=== PATIENT | male | born 1960 | race Caucasian/White ===

== ENCOUNTER 2016-12-04 20:06 | Emergency (ER) | payer SELFPAY ==
[2016-12-04] MEDS: FUROSEMIDE 40 MG TABLET PO ONE (20:59)
--- NOTE | 2016-12-04 21:20 | ED Physician Documentation ---
General Adult - HISTORIAN Historian: patient, spouse - HPI Stated Complaint: BLE swelling Chief Complaint: General Adult Additional Information: pt home fr mumc 5 d ago for alcoholic cirrhosis and gi bleed-hx 1 10/06 gAL vodka for years. pt states std drinking age 4-5 years(grandfather gave me drinks) mother age 48 alcoholic cirrhosis. pt states quid etoh when wewnt to hosp w gi bleed. since home marked edema legs and abd ascites. std while in hosp. nop gene dt's. pt alert cheerful-tx mum by dr NUNO referred to father who is dr at [facility](dr nuno). after discussion w/pt will tx w/lasix pt to f/u w/pcp-bup probably need gastroenterologists. pt asym xc edema. Onset: days ago (5-6) Timing: worse (edema lower ext asn abd ascites-no resp difficulty-has never smoked) Severity: moderate Further Comments: yes (must f/u w/pcp and or gastroenterologists) - ROS CONST: no problems (bleeding gi stopped black bms now brown no eccymosis or other bleeding) EYES/ENT: other (jaundice slight and [id number] puritis) CVS/RESP: denies: chest pain, shortness of breath GI/: vomiting, nausea, diarrhea, black stools. denies: problems urinating MS/SKIN/LYMPH: leg swelling (plus ascites-no sob) NEURO/PSYCH: other (jovial cheerful). denies: dizziness, tingling, numbness, difficulty walking, difficulty with speech, anxiety, depression - PAST HX Past History: hypertension, other (mix2). denies: asthma, COPD, renal disease Other History: other (mi x 2 liver cirrhosis nno lung ds never smoked-n ot sob no neck vein distention-lung bases clear) Allergies/Adverse Reactions: Allergies Allergy/AdvReac Type Severity Reaction Status Date / Time No Known Allergies Allergy Verified 12/04/16 20:29 Home Medications: Ambulatory Orders Medication Instructions Recorded Furosemide [Lasix] 40 mg PO DAILY PRN #10 tablet 12/04/16 Omeprazole [Prilosec] 20 mg PO QDAY 12/04/16 Pnv95/Ferrous Fumarate/FA 1 each PO DAILY 12/04/16 [ Caplet] - SOCIAL HX Smoking History: non-smoker Alcohol Use: other (see prev) Drug Use: none - FAMILY HX Family History: Yes (-48 - cirrhosis etoh) - VITAL SIGNS Vital Signs: Vital Signs Temp Pulse Resp BP Pulse Ox 98.0 F 93 H 18 122/77 97 12/04/16 20:23 12/04/16 20:23 12/04/16 20:23 12/04/16 20:23 12/04/16 20:23 - REVIEWED ASSESSMENTS Nursing Assessment Reviewed: Yes Vitals Reviewed: Yes ED Results Lab/Radiology - Orders Orders: ED Orders Category Date Time Status Furosemide [Lasix] Med 12/04/16 20:54 Once 40 mg PO NOW ONE General Adult Physical Exam - PHYSICAL EXAM GENERAL APPEARANCE: mild distress EENT: other (scler icterus) NECK: normal inspection, thyroid normal, supple. No: lymphadenopathy, carotid bruit RESPIRATORY: no resp distress, chest non-tender, breath sounds normal. No: wheezes, rales, rhonchi CVS: reg rate & rhythm, heart sounds normal ABDOMEN: soft, non-tender, distended (apparent recent onset 5-d ascites-pt had no leg swelling until quit drinking) BACK: normal inspection, no CVA tenderness SKIN: warm/dry, jaundice EXTREMITIES: edema (to hips) NEURO: oriented X3, motor nml, sensation nml, mood/affect nml Discharge Clincal Impression: Alcoholic cirrhosis of liver with ascites, marked leg edema Prescriptions: Furosemide [Lasix] 40 mg PO DAILY PRN #10 tablet PRN Reason: Swelling Home Medications: Ambulatory Orders Furosemide [Lasix] 40 mg PO DAILY PRN #10 tablet 12/04/16 Omeprazole [Prilosec] 20 mg PO QDAY 12/04/16 Pnv95/Ferrous Fumarate/FA [ Caplet] 1 each PO DAILY 12/04/16 Comments: pt to take lasix tonite see DR NUNO tomorrow-possibly need gastroenterologists. indeed interesting quit drinking w/o dt's and no w/drawl and developed edema only after quit drinking-bleed gi has apparently quit Condition: Fair Disposition: 01 HOME, SELF-CARE Decision to Admit: NO Decision Time: 21:39
[2016-12-04 21:27] VITALS: BP 115/70
== END 2016-12-04 21:15 | disposition home or self-care (01) ==
LOC: ED 20:06
DX: K70.31 Alcoholic cirrhosis of liver with ascites (principal)
CPT/HCPCS: 99283

== ENCOUNTER 2017-09-10 14:45 | Emergency (ER) | payer SELFPAY ==
[2017-09-10 15:58] LABS: BASOPHILS % 0.5 (0.0-1.5); EOSINOPHILS % 2.4 % (0.0-6.8); MEAN CORPUSCULAR HEMOGLOBIN 26.2 pg (28.0-34.0); MEAN CORPUSCULAR VOLUME 89.7 fl (80.0-100.0); NEUTROPHILS # 1.7 # k/uL (1.4-7.7)
--- NOTE | 2017-09-10 16:08 | ED Physician Documentation ---
General Adult - HISTORIAN Historian: patient, spouse - HPI Stated Complaint: retaining fluid Chief Complaint: General Adult Additional Information: c[place] 35 [place] [facility] [place] had EGD AND COLONOSCOPY. . pt admitted for hematemesis-transfusions for pud. says 3-4 pts per day etoh-now pt says 1 pt/week. Onset: other (2 weeks ago) Timing: still present, worse since [place] [facility] [place] Severity: moderate Modifying Factors: pt noted to have constant tremors - ROS CONST: other (wt gain and pt stays in bed most of day-has good appetite) CVS/RESP: shortness of breath. denies: chest pain, cough GI/: other (bm's are yellow =- no black or bloody). denies: problems urinating, vomiting, nausea MS/SKIN/LYMPH: leg swelling NEURO/PSYCH: difficulty walking - PAST HX Past History: other (VA X 2 W/CARD CARD CATH COPD PUD GERD CHF) Surgeries/Procedures: none Allergies/Adverse Reactions: Allergies Allergy/AdvReac Type Severity Reaction Status Date / Time No Known Allergies Allergy Verified 12/04/16 20:29 Home Medications: Ambulatory Orders Medication Instructions Recorded Omeprazole [Prilosec] 20 mg PO QDAY 12/04/16 - SOCIAL HX Smoking History: non-smoker Alcohol Use: rarely (1/2 PT PER WEEK---PREV 4-5 1/2 PT PER DAY-[facility]) Drug Use: none - FAMILY HX Family History: Yes (F/D/ACCIDENT M/D/ETOH) - VITAL SIGNS Vital Signs: Vital Signs Temp Pulse Resp BP Pulse Ox 98.7 F 65 24 126/72 96 09/10/17 14:45 09/10/17 14:45 09/10/17 14:45 09/10/17 14:45 09/10/17 14:45 - REVIEWED ASSESSMENTS Nursing Assessment Reviewed: Yes Vitals Reviewed: Yes ED Results Lab/Radiology - Radiology Radiology Impressions: cardiomegally no infiltrate = cxr - Orders Orders: ED Orders Category Date Time Status CHEST P.A.&LAT 2 VIEWS [RAD] Stat Exams 09/10/17 Ordered ALCOHOL MEDICAL USE ONLY Stat Lab 09/10/17 15:50 Received BNP [NT-proBNP] Stat Lab 09/10/17 Ordered CBC/PLATELET/DIFF Routine Lab 09/10/17 Ordered CMP Routine Lab 09/10/17 Ordered EKG WITH COMPARISON Stat Ther 09/10/17 Ordered General Adult Physical Exam - PHYSICAL EXAM GENERAL APPEARANCE: moderate distress EENT: eye inspection normal NECK: normal inspection RESPIRATORY: no resp distress, wheezes (SLIGHT) CVS: reg rate & rhythm, heart sounds normal ABDOMEN: soft, non-tender, distended (LIVER BORDER NON PALPABLE) SKIN: warm/dry, normal color, other (PT NOTEDTO HAVE CONTINUOUS TREMOR). No: cyanosis, diaphoresis, jaundice EXTREMITIES: non-tender, normal range of motion, no edema NEURO: oriented X3, motor nml, sensation nml, mood/affect nml ( PT NOT GOOD HISTORIAN-- SUPPLEMENT HELPFUL) Discharge Clincal Impression: anemia, ethanol abuse Referrals: Omayra Esquivel MD [Primary Care Provider] - 2 Days Comments: consul w/ pcp DR ROSS PT/ AND [place] [facility] [facility] [place]: Fair Disposition: 02 XFER SHT-TRM HOSP Decision to Admit: [id number] Decision Time: 17:42
[2017-09-10 16:09] LABS: eGFR (African) > 60; eGFR (Non-African) > 60
--- NOTE | 2017-09-10 16:34 | Diagnostic Imaging Report ---
DENIZ ROCHE [facility] [address] [facility].[address] [address] Report Submission Date: Sep 10, 2017 4:22:00 PM TELEPHONE CLERKS SUPERVISOR Patient Study Name: PATTY EATON Date: Sep 10, 2017 3:58:12 PM TELEPHONE CLERKS SUPERVISOR Modality Type: CR Gender: M Description: CHEST : 56 Institution: [facility] Physician: DENIZ ROCHE Examination: PA and lateral chest. History: Evaluate lung schumacher. Comparison exam: None provided Findings: PA lateral chest demonstrate a mildly prominent cardiac and mediastinal silhouette. No focal infiltrate. No blunting of the costophrenic margins. Osseous structures are appropriate for age. Impression: No acute pulmonary process. Electronically signed on Sep 10, 2017 4:22:00 PM TELEPHONE CLERKS SUPERVISOR by: Angel Luis MENSAH
[2017-09-10 18:12] VITALS: BP 111/85
== END 2017-09-10 18:08 | disposition short-term general hospital (02) ==
LOC: ED 14:45
DX: D64.9 Anemia, unspecified (principal); F10.10 Alcohol abuse, uncomplicated
CPT/HCPCS: 71020; 80053; 80320; 83880; 85025; 99284; G0480; S1016

== ENCOUNTER 2018-01-12 18:18 | Observation (INO) | payer OTHER ==
--- NOTE | 2018-01-12 18:38 | ED Physician Documentation ---
Chest Pain - HISTORIAN Historian: patient - HPI Chief Complaint: Chest Pain Additional Information: Patient states that he has been having some intermittent chest pain. No precipitating factor noted. No modifying facotrs noted. Patient states that he had a DE in 2001. Had heart catherization and no procedure was done, was told that a blood clot that passed through. States that a 2nd episode of chest pain, was told a muscle was pulling away from his hert. No catherization done at that time. Onset: days ago (patient states that he has been having some squeezing chest pain off and on for the last three days.) Timing: still present, better Duration: waxing, waning Last known Well Date: 01/08/18 Last Known Well Time: 22:00 Last known Well Code/Unknown Code: Unknown Context: rest Severity: mild Chest Pain Radiation: arms (right arm) Chest Pain Signs/Symptoms: denies: nausea, vomiting, diaphoresis, dyspnea, tachypnea Worsened By: nothing Relieved By: nothing - ROS CONST: other (HTN) - PAST HX DE risk factors: hypertension, cardiac disease (???). denies: diabetes Type 2, hyperlipidemia DVT/PE Risk Factors: leg swelling Neuro deficit: none GI disease: GERD Lung disease: none Surgeries/Procedures: cardiac cath (2001) Immunizations: referred to PCP Allergies/Adverse Reactions: Allergies Allergy/AdvReac Type Severity Reaction Status Date / Time No Known Allergies Allergy Verified 01/12/18 18:46 Home Medications: Ambulatory Orders Medication Instructions Recorded Omeprazole [Prilosec] 20 mg PO QDAY 12/04/16 Ferrous Sulfate [Feosol] 325 mg PO D 01/12/18 Spironolactone [Aldactone] 50 mg PO BID 01/12/18 - SOCIAL HX Smoking History: non-smoker Alcohol Use: heavy Drug Use: none - FAMILY HX Family HX: none - VITAL SIGNS Vital Signs: Vital Signs Temp Pulse Resp BP Pulse Ox 111/85 09/10/17 18:09 - REVIEWED ASSESSMENTS Nursing Assessment Reviewed: Yes Vitals Reviewed: Yes ED Results Lab/Radiology - Radiology Radiology Impressions: Chest 2 views History: Chest pain Findings: Obesity is observed. The lungs are clear. There is no pleural effusion. Heart size and pulmonary vascularity are normal. Impression: Clear lungs. Chest Pain Physical Exam - EXAM General Appearance: alert (poor historian), mild distress Neck: nml inspection Respiratory: no resp. distress CVS: frequent extrasystoles (bigeminy for short periord of time) Abdomen: soft, no distension, non-tender, hepatomegaly (mild) Skin: warm/dry, normal color Extremities: non-tender, edema (102 plus edema) Neuro: oriented X3, CN's nml as tested, mood/affect nml, cognition normal Discharge Clincal Impression: Chest pain Qualifiers: Chest pain type: precordial pain Qualified Code(s): R07.2 - Precordial pain Referrals: Omayra Esquivel MD [Primary Care Provider] - 2 Days Condition: Stable Disposition: 01 HOME, SELF-CARE Decision to Admit: [id number] Date of Decison to Admit: 01/12/18 Decision Time: 20:54
[2018-01-12] MEDS ORDERED: ASPIRIN 81 MG CHEW TAB PO ONE (18:41)
[2018-01-12 18:49] LABS: BASOPHILS % 0.7 (0.0-1.5); EOSINOPHILS % 1.7 % (0.0-6.8); MEAN CORPUSCULAR HEMOGLOBIN 32.2 pg (28.0-34.0); MEAN CORPUSCULAR VOLUME 96.2 fl (80.0-100.0); MONOCYTES % 4.9 % (0.0-11.0); NEUTROPHILS # 2.6 # k/uL (1.4-7.7)
[2018-01-12 19:21] LABS: eGFR (Non-African) > 60
--- NOTE | 2018-01-12 21:43 | Diagnostic Imaging Report ---
RORO CHAPMAN [facility] [address] [address] Report Submission Date: Jan 12, 2018 7:31:09 PM CDT Patient Study Name: PATTY EATON Date: Jan 12, 2018 6:58:13 PM CDT Modality Type: DX Gender: M Description: CHEST : 56 Institution: [facility] Physician: RORO CHAPMAN Chest 2 views History: Chest pain Findings: Obesity is observed. The lungs are clear. There is no pleural effusion. Heart size and pulmonary vascularity are normal. Impression: Clear lungs. Electronically signed on Jan 12, 2018 7:31:09 PM CDT by: Abel MENSAH
[2018-01-12] MEDS ORDERED: ENOXAPARIN SODIUM 30 MG/0.3 ML DISP.SYRIN SQ SCH (23:00)
[2018-01-12] MEDS: SPIRONOLACTONE 25 MG TABLET PO SCH (23:39)
[2018-01-13] MEDS ORDERED: ASPIRIN EC 81 MG TABLET.DR ONE (03:35)
[2018-01-13 07:00] VITALS: BMI 43.3
[2018-01-13] MEDS ORDERED: PANTOPRAZOLE SODIUM 40 MG TABLET PO SCH (07:00)
[2018-01-13 07:16] LABS: BASOPHILS % 0.8 (0.0-1.5); EOSINOPHILS % 1.3 % (0.0-6.8); MEAN CORPUSCULAR HEMOGLOBIN 32.4 pg (28.0-34.0); MEAN CORPUSCULAR VOLUME 97.6 fl (80.0-100.0); MONOCYTES % 6.9 % (0.0-11.0); NEUTROPHILS # 1.9 # k/uL (1.4-7.7)
[2018-01-13 07:19] LABS: eGFR (Non-African) > 60
--- NOTE | 2018-01-13 08:31 | History and Physical Report ---
History of Present Illnes - History of Present Illness Reason for Visit: Chest pain with history of cardiac events, Bigeminy on EKG. History of Present Illness: Patient presented to the emergency room for squeezing chest pain. He states these episodes last minutes to hours and have been occurring for the last few weeks. He states last night the chest pain radiated down into his right arm and so he came to the ER to be evaluated. He states he has not seen a bridal sales consultant for many years but notes a history of 2 previous cardiac events. He states the chest pain resolved shortly after arriving in the ER and has not returned. He denies any palpitations or racing heart rate. He was admitted overnight for observation for serial troponin's which were negative. He was also found to have elevated liver enzymes which he states are not new. He sates he is a heavy drinking but has been trying to quit drinking. He denies any abdominal pain. He states he is feeling well otherwise and denies any other concerns today. - Past Medical History Cardiac: CHF (? states he takes water pill for LE swelling), [place] (2001 and again 3-4 years ago with no stenting or bypass per patient) Pulmonary: Asthma (seasonally) Hepatobiliary: Other (Elevated liver enzymes in a heavy drinker - he is supposed to see liver specalist soon) Endocrine: denies: Diabetes - Past Surgical History Past Surgical History: Other (carpal tunel, vasectomy) - Past Social History Smoke: No Alcohol: Heavy (Patient states he is quitting since being told his liver enzymes are elevated. ) Lives: Alone - Health Maintenance Health Maintenance: Cholesterol, Influenza Vaccine, Colonoscopy Influenza Vaccine: Current for this Influenza Season Pneumonia Vaccine: No Resuscitation Status: Resusciation Status Resuscitation Status Full Code - Unable to Obtain History Unable to Obtain: No Review of Systems - Review of Systems Constitutional: negative: Fever Eyes: negative: pain ENT: negative: Ear Pain, Throat Swelling Respiratory: negative: Cough, Shortness of Breath Cardiovascular: negative: Chest Pain (resolved), Palpitations, Edema, Light Headedness Gastrointestinal: negative: Nausea, Vomiting, Abdominal Pain, Diarrhea Genitourinary: negative: Dysuria Musculoskeletal: negative: Neck Pain, Shoulder Pain, Arm Pain (resolved), Leg Pain Skin: negative: Rash Neurological: negative: Weakness, Numbness, Change in Speech, Confusion - Medications/Allergies Allergies/Adverse Reactions: Allergies Allergy/AdvReac Type Severity Reaction Status Date / Time No Known Allergies Allergy Verified 01/12/18 18:46 Home Medications: Home Medications Ferrous Sulfate [Feosol] 325 mg PO D 01/12/18 Spironolactone [Aldactone] 50 mg PO BID 01/12/18 Current Inpatient Medications: Current Inpatient Medications Aspirin (Aspirin) 81 mg PO DAILY [facility] Enoxaparin Sodium (Lovenox) 30 mg SQ QD [facility] Stop: 01/25/18 23:01 Last Admin: 01/12/18 23:39 Dose: 30 mg Pantoprazole Sodium (Protonix) 40 mg PO 0700 [facility] Last Admin: 01/13/18 06:05 Dose: 40 mg Sodium Chloride (Normal Saline Flush) 3 ml IV BID [facility] Spironolactone (Aldactone) 50 mg PO DAILY [facility] Last Admin: 01/12/18 23:39 Dose: 50 mg Exam - Exam Vital Signs: Vital Signs (72 hours) 01/12/18 01/12/18 01/12/18 21:47 22:00 22:45 Temperature 97.6 F 97.6 F Pulse Rate 75 Pulse Rate [ 72 72 Left Pulse ox] Respiratory 22 22 Rate Blood Pressure 134/91 134/91 [Right Arm] O2 Sat by Pulse 96 96 96 Oximetry 01/13/18 01/13/18 02:00 06:00 Temperature 97.1 F L 97.9 F Pulse Rate 75 100 H Pulse Rate [ 72 78 Left Pulse ox] Respiratory 18 16 Rate Blood Pressure 121/74 132/67 [Right Arm] O2 Sat by Pulse 94 94 Oximetry General: Alert (Patient is a poor historian), Oriented to Person, Oriented to Place, Oriented to Time, Obese HEENT: Poor Dentition. No: Atraumatic, PERRLA, EOMI, Mouth Mucous membr. moist/ [place] Neck: Normal Range of Motion Lungs: Clear to auscultation, Normal air movement, Rhonchi. No: Respiratory Distress Cardiovascular: No murmurs, Regularly Irregular Abdomen: Normal bowel sounds, Soft, No tenderness, No masses Integumentary: Normal, [place], Warm, Dry Extremities: No clubbing, No cyanosis, No edema, Normal pulses, No tenderness/ swelling Neurological: Normal gait, Normal speech, Strength Equal Bilat, Normal tone, Sensation intact. No: Generalized Weakness Psych/Mental Status: Mental status NL, Mood NL, Appropriate Affect - Laboratory Results Laboratory Results: Laboratory Results 01/13/18 01/13/18 01/13/18 01:00 06:30 06:30 WBC RBC Hgb Hct MCV MCH MCHC RDW Plt Count Neut % (Auto) Lymph % (Auto) Nicholas % (Auto) Eos % (Auto) Baso % (Auto) Neut # (Auto) Lymph # (Auto) Nicholas # (Auto) Eos # (Auto) Baso # (Auto) Reactive Lymphs % Reactive Lymphs # Sodium 143 Potassium 4.2 Chloride 111 H Carbon Dioxide 21 L BUN 12 Creatinine 1.00 Estimated Creat Clear 145 Est GFR ( Amer) > 60 Est GFR (Non-Af Amer) > 60 Glucose 98 Calcium 8.6 Total Bilirubin 3.7 H AST 69 H ALT 34 Alkaline Phosphatase 167 H Troponin I < 0.03 L < 0.03 L Total Protein 6.6 Albumin 3.0 L 01/13/18 06:35 WBC 3.30 L RBC 3.68 L Hgb 11.9 L Hct 36.0 L MCV 97.6 MCH 32.4 MCHC 33.2 RDW 17.6 H Plt Count 42 L Neut % (Auto) 57.7 Lymph % (Auto) 30.5 Nicholas % (Auto) 6.9 Eos % (Auto) 1.3 Baso % (Auto) 0.8 Neut # (Auto) 1.9 Lymph # (Auto) 1.0 Nicholas # (Auto) 0.2 Eos # (Auto) 0.0 Baso # (Auto) 0.0 Reactive Lymphs % 2.8 Reactive Lymphs # 0.1 Sodium Potassium Chloride Carbon Dioxide BUN Creatinine Estimated Creat Clear Est GFR ( Amer) Est GFR (Non-Af Amer) Glucose Calcium Total Bilirubin AST ALT Alkaline Phosphatase Troponin I Total Protein Albumin Laboratory Results - last 24 hr 01/12/18 01/12/18 01/12/18 18:40 18:40 18:40 WBC 4.10 RBC 3.83 L Hgb 12.4 Hct 36.9 L MCV 96.2 MCH 32.2 MCHC 33.5 RDW 17.7 H Plt Count 36 L Neut % (Auto) 62.8 Lymph % (Auto) 27.6 Nicholas % (Auto) 4.9 Eos % (Auto) 1.7 Baso % (Auto) 0.7 Neut # (Auto) 2.6 Lymph # (Auto) 1.1 Nicholas # (Auto) 0.2 Eos # (Auto) 0.1 Baso # (Auto) 0.0 Reactive Lymphs % 2.3 Reactive Lymphs # 0.1 Sodium 144 Potassium 4.3 Chloride 111 H Carbon Dioxide 21 L BUN 13 Creatinine 1.10 Estimated Creat Clear 139 Est GFR ( Amer) > 60 Est GFR (Non-Af Amer) > 60 Glucose 95 Calcium 8.6 Total Bilirubin 3.3 H AST 77 H ALT 32 Alkaline Phosphatase 219 H Creatine Kinase 152 Troponin I < 0.03 L Total Protein 7.3 Albumin 3.4 L 01/13/18 01/13/18 01/13/18 01:00 06:30 06:30 WBC RBC Hgb Hct MCV MCH MCHC RDW Plt Count Neut % (Auto) Lymph % (Auto) Nicholas % (Auto) Eos % (Auto) Baso % (Auto) Neut # (Auto) Lymph # (Auto) Nicholas # (Auto) Eos # (Auto) Baso # (Auto) Reactive Lymphs % Reactive Lymphs # Sodium 143 Potassium 4.2 Chloride 111 H Carbon Dioxide 21 L BUN 12 Creatinine 1.00 Estimated Creat Clear 145 Est GFR ( Amer) > 60 Est GFR (Non-Af Amer) > 60 Glucose 98 Calcium 8.6 Total Bilirubin 3.7 H AST 69 H ALT 34 Alkaline Phosphatase 167 H Creatine Kinase Troponin I < 0.03 L < 0.03 L Total Protein 6.6 Albumin 3.0 L 01/13/18 06:35 WBC 3.30 L RBC 3.68 L Hgb 11.9 L Hct 36.0 L MCV 97.6 MCH 32.4 MCHC 33.2 RDW 17.6 H Plt Count 42 L Neut % (Auto) 57.7 Lymph % (Auto) 30.5 Nicholas % (Auto) 6.9 Eos % (Auto) 1.3 Baso % (Auto) 0.8 Neut # (Auto) 1.9 Lymph # (Auto) 1.0 Nicholas # (Auto) 0.2 Eos # (Auto) 0.0 Baso # (Auto) 0.0 Reactive Lymphs % 2.8 Reactive Lymphs # 0.1 Sodium Potassium Chloride Carbon Dioxide BUN Creatinine Estimated Creat Clear Est GFR ( Amer) Est GFR (Non-Af Amer) Glucose Calcium Total Bilirubin AST ALT Alkaline Phosphatase Creatine Kinase Troponin I Total Protein Albumin Assessment/Plan - Assessment/Plan (1) Bigeminal rhythm Status: Acute Current Visit: Yes Assessment: Patient was found to be in Bigeminal rhythm upon arrival in the ER. He returned to sinus rhythm before being admitted to the floor. Patient returned to Bigeminal rhythm this morning before two short runs of ventricular tachycardia this morning. He denies any chest pain, syncope, shortness of breath, palpations, or racing heart at the time of interview. Heart sounds irregular following Ventricular tachycardia. Plan: Serial troponins negative. Patient will be transferred to [place] due to runs of ventricular tachycardia this morning. (2) Chest pain Status: Acute Current Visit: Yes Qualifiers: Chest pain type: precordial pain Qualified Code(s): R07.2 - Precordial pain Assessment: Chest pain resolved at time of interview. VTE Assessment - RISK FACTOR SCORE VTE RISK FACTOR SCORES: AGE 40-60 YEARS, OBESITY
--- NOTE | 2018-01-13 08:52 | Discharge Summary ---
Discharge Summary - Discharge Sumary History of Present Illness: 57 year old male presented to the ER for squeezing chest pain with radiation down his right arm which resolved not long after arriving. He states he is having this pain intermittently for the last few days. He was found be in Bigeminy in the ER but was reported that returned to sinus rhythm shortly after arriving in the ER. He was admitted to observation for serial troponin's which were negative. He was also found to have elevated liver enzymes. Patient states he has been a heavy drinking for many years. He is trying to quit drinking since finding out that his liver enzymes were elevated. At approximately 9:20 this morning patient got up to use the restroom and had two runs of Ventricular tachycardia. He denies any chest pain during this episode. An EKG was ordered and Dr. Arambula contacted [facility] for transfer. The runs of Ventricular tachycardia lasted only a few seconds each and the patient returned to a Bigeminy rhythm. Condition at Discharge: Stable Home Medications: Ambulatory Orders Medication Instructions Recorded Omeprazole [Prilosec] 20 mg PO QDAY 12/04/16 Ferrous Sulfate [Feosol] 325 mg PO D 01/12/18 Spironolactone [Aldactone] 50 mg PO BID 01/12/18 Aspirin [Brady] 81 mg PO DAILY tab.chew 01/13/18 Procedures this Visit: None Allergies/Adverse Reactions: Allergies Allergy/AdvReac Type Severity Reaction Status Date / Time No Known Allergies Allergy Verified 01/12/18 18:46 Patient Problems: Current Active Problems Problem Status Onset Bigeminal rhythm Acute Chest pain Acute Ventricular tachycardia Acute Discharge Summary: The patient will be transferred to the [facility] for cardiac workup. Hospital Course: The patient was admitted to observation after presenting to the ER for squeezing chest pain. He notes a history of 2 previous cardiac events. His serial traponin's were normal. He was found to be in Bigeminy rhythym. He got up to use the rest room and had two runs of Ventricular tachycaria. [facility] contacted and patient will be transferred for additional cardiac work up. - Final Diagnosis (1) Ventricular tachycardia Problems: [facility] contacted and patient will be transferred to cardiology service for additional workup. (2) Bigeminal rhythm Problems: Patient remains in a bigeminal rhythm following runs of Ventricular tachycardia. (3) Chest pain Problems: Chest pain resolved within minutes of arriving to the ER. No chest pain during runs of ventricular tachycardia.
[2018-01-13] MEDS ORDERED: SALINE FLUSH 10 ML DISP.SYRIN IV SCH (09:00)
[2018-01-13] MEDS: ASPIRIN 81 MG CHEW TAB PO SCH ×2 (09:20→09:27)
[2018-01-13] MEDS: SPIRONOLACTONE 25 MG TABLET PO SCH (09:21)
[2018-01-13 10:36] VITALS: BP 137/71
== END 2018-01-13 10:45 | disposition short-term general hospital (02) ==
LOC: ED 18:18 → SOUTH 21:19
PROVIDERS: ADMIT Physician Assistant; ATTEND Family Medicine
DX: R07.2 Precordial pain (principal); I10 Essential (primary) hypertension
CPT/HCPCS: 36415; 71046; 80053; 82550; 84484; 85025; 93005; G0378; J1650; 96372; 99217; 99218; 99219; S1016

== ENCOUNTER 2018-03-08 11:57 | Emergency (ER) | payer OTHER ==
[2018-03-08] MEDS ORDERED: DIPH,PERTUSS(ACELL),TET VAC/PF 0.5 ML DISP.SYRIN IM ONE (12:05)
[2018-03-08] MEDS ORDERED: 0.9 % SODIUM CHLORIDE 1,000 ML IV ONE (12:42)
[2018-03-08 12:51] LABS: APPEARANCE,URINE CLEAR (CLEAR); COLOR,URINE AMBER (YELLOW); OCCULT BLOOD,URINE TR (NEGATIVE); PH URINE 5.5 (5.0 - 8.0)
[2018-03-08 12:51] LABS: CANNABINOIDS NEGATIVE ng/mL (< 50); METHYLENEDIOXYMETHAMPHETAMINE NEGATIVE ng/mL (<500)
[2018-03-08 12:52] LABS: BASOPHILS % 0.7 (0.0-1.5); EOSINOPHILS % 2.9 % (0.0-6.8); MEAN CORPUSCULAR HEMOGLOBIN 34.9 pg (28.0-34.0); MEAN CORPUSCULAR VOLUME 102.7 fl (80.0-100.0); MONOCYTES % 4.5 % (0.0-11.0); NEUTROPHILS # 2.9 # k/uL (1.4-7.7)
--- NOTE | 2018-03-08 12:57 | ED Physician Documentation ---
Fall - HISTORIAN Historian: patient - HPI Stated Complaint: fall Chief Complaint: Fall Additional Information: Fell shortly after 0700 today. Davon caught on a portion of the deck and he landed on his face. Says he was unconscious until 1130. Drove himself to ER. Also has pain left wrist. Thinks he tried to stop his fall. Admits to alcohol this am. Takes daily 81 mg asa. Denies dental trauma today. - ROS CONST: no problems - PAST HX Past History: AMI (x2) Immunizations: tetanus (a year ago) Allergies/Adverse Reactions: Allergies Allergy/AdvReac Type Severity Reaction Status Date / Time No Known Allergies Allergy Verified 03/08/18 12:29 Home Medications: Ambulatory Orders Medication Instructions Recorded Omeprazole [Prilosec] 20 mg PO QDAY 12/04/16 Ferrous Sulfate [Feosol] 325 mg PO D 01/12/18 Spironolactone [Aldactone] 50 mg PO BID 01/12/18 Aspirin [Brady] 81 mg PO DAILY tab.chew 01/13/18 - SOCIAL HX Smoking History: non-smoker - FAMILY HX Family History: no significant history - VITAL SIGNS Vital Signs: Vital Signs Temp Pulse Resp BP Pulse Ox 100.0 F H 71 20 139/58 97 03/08/18 11:58 03/08/18 11:58 03/08/18 11:58 03/08/18 11:58 03/08/18 11:58 - REVIEWED ASSESSMENTS Nursing Assessment Reviewed: Yes Vitals Reviewed: Yes Progress - Progress Progress: Patient Study Name: PATTY EATON Date: Mar 08, 2018 12:17:35 PM CDT Modality Type: CT\SR Gender: M Description: CT BRAIN W/O CONTRAST : 56 Institution: [facility] Physician: WILMER SALEEM - Examination: CT head without contrast History: INJURY AFTER FALL (Hx) Comparison exam: None available Technique: Noncontrast head CT protocol. Findings: Ventricles and sulci are consistent for patient age. Cerebrocerebellar parenchyma demonstrates periventricular low attenuation consistent with small vessel disease. No evidence for parenchymal hemorrhage. No evidence for mass or mass effect. No midline shift. No extra axial fluid collections. Partial visualization of the paranasal sinuses, mastoid air cells, orbits, skull and scalp without gross irregularity. Anterior falx calcifications. Impression: Age related changes. No acute parenchymal process. No hemorrhage. Electronically signed on Mar 08, 2018 1:04:18 PM CDT by: Angel Luis Henry Patient Study Name: PATTY EATON Date: Mar 08, 2018 12:20:00 PM CDT Modality Type: CT\SR Gender: M Description: CT MAXILLOFACIAL W/O D : 56 Institution: [facility] Physician: WILMER SALEEM SILVESTRE Examination: CT maxillofacial History: INJURY AFTER FALL (Hx) Comparison exams: None provided Technique: Axial imaging with sagittal and coronal reconstruction Findings: Medial and inferior orbital gonzalez are intact. Anterior and posterior maxillary gonzalez are also intact. Zygomatic arches without fracture. No nasal bone abnormality. Mandibles including the mandibular condyle are without irregularity. No air fluid levels within the sinuses. Mild mucous thickening. Soft tissue fullness involving the superior lip/infranasal region. Remaining visualized osseous structures and soft tissue structures are without irregularity. Impression: No orbital, nasal, mandibular or maxillary bone fractures. Infranasal soft tissue injury. Electronically signed on Mar 08, 2018 1:09:44 PM CDT by: Angel Luis Henry Patient Study Name: PATTY EATON Date: Mar 08, 2018 12:23:14 PM CDT Modality Type: CT\SR Gender: M Description: CT C-SPINE W/O CONTRAS : 56 Institution: [facility] Physician: WILMER SALEEM SILVESTRE Examination: CT cervical spine History: INJURY AFTER FALL (Hx) Comparison exams: None provided Technique: CT cervical spine axial imaging with sagittal and coronal reconstruction Findings: Sagittal reconstruction demonstrates normal height and alignment the cervical vertebral bodies. No anterior compression deformity. Scattered osteophytes. Disc space narrowing C3/4. Coronal reconstruction does not demonstrate locked or perched facets. Alantoaxial degenerative changes. Carotid vascular calcifications. Axial imaging obtained from the skull base through T1 Lamina and pedicles are intact. No ossific density within the central canal. Scattered facet degenerative changes. No prevertebral soft tissue abnormality. Impression: Multilevel degenerative changes. No evidence for vertebral body compression fracture. Electronically signed on Mar 08, 2018 1:24:27 PM CDT by: Angel Luis Figueroa Patient Study Name: PATTY EATON Date: Mar 08, 2018 1:04:49 PM CDT Modality Type: DX Gender: M Description: UPPER EXTREMITY : 56 Institution: [facility] Physician: WILMER SALEEM - SILVESTRE Examination: Plain film left wrist History: PAIN AFTER FALL (Hx) Comparison exams: None available Findings: 3 views the left wrist demonstrates osteopenia. Articular degenerative changes. Old ulna styloid avulsion. No acute appearing fracture. No dislocation. No soft tissue abnormality. Impression: Osteopenia and degenerative changes. No acute appearing osseous abnormality Electronically signed on Mar 08, 2018 1:31:53 PM CDT by: Angel Luis Figueroa ETOH 284. coming to ER. Will ask her to drive pt home. ED Results Lab/Radiology - Lab Results Lab Results: Lab Results 03/08/18 03/08/18 03/08/18 12:40 12:40 12:35 WBC 5.00 K/ul K/ul (4.00-12.00) RBC 4.02 M/ul M/ul (3.90-5.20) Hgb 14.0 g/dL g/dL (12.0-18.0) Hct 41.3 % % (37.0-53.0) MCV 102.7 fl H fl (80.0-100.0) MCH 34.9 pg H pg (28.0-34.0) MCHC 34.0 g/dL g/dL (30.0-36.0) RDW 15.4 % H % (11.3-14.3) Plt Count 72 K/mm3 L K/mm3 (130-400) Neut % (Auto) 57.9 % % (39.0-79.0) Lymph % (Auto) 32.2 % % (16.0-50.0) Gallia % (Auto) 4.5 % % (0.0-11.0) Eos % (Auto) 2.9 % % (0.0-6.8) Baso % (Auto) 0.7 (0.0-1.5) Neut # (Auto) 2.9 # k/uL # k/uL (1.4-7.7) Lymph # (Auto) 1.6 # k/uL # k/uL (0.6-4.0) Gallia # (Auto) 0.2 # k/uL # k/uL (0.0-0.9) Eos # (Auto) 0.1 # k/uL # k/uL (0.0-0.6) Baso # (Auto) 0.0 # k/uL # k/uL (0.0-0.5) Reactive Lymphs % 1.8 % % (0.0-5.0) Reactive Lymphs # 0.1 # k/uL # k/uL (0.0-0.8) Urine Color Paula (YELLOW) Urine Appearance Clear (CLEAR) Urine pH 5.5 (5.0 - 8.0) Ur Specific [place] >=1.030 H (1.010-1.030) Urine Protein Negative mg/dL mg/dL (NEGATIVE) Urine Ketones Negative mg/dL mg/dL (NEGATIVE) Urine Occult Blood Tr (NEGATIVE) Urine Nitrite Negative (NEGATIVE) Urine Bilirubin Negative (NEGATIVE) Urine Urobilinogen 1.0 Eu Eu (0.2-1.0) Ur Leukocyte Esterase Negative (NEGATIVE) Urine Glucose Negative mg/dL mg/dL (NEGATIVE) Opiates Screen Negative ng/mL ng/mL (<300) Oxycodone Screen Negative ng/mL ng/mL (<100) Methadone Screen Negative ng/mL ng/mL (<200) Ur Barbiturates Screen Negative ng.mL ng.mL (<200) Tricyclic Antidepress Negative ng/mL ng/mL (<300) Phencyclidine Screen Negative ng/mL ng/mL (< 25) Amphetamines Screen Negative ng/mL ng/mL (<500) U Methamphetamines Scrn Negative ng/mL ng/mL (<500) MDMA Negative ng/mL ng/mL (<500) Benzodiazepines Screen Negative ng/mL ng/mL (<150) Urine Cocaine Screen Negative ng/mL ng/mL (<150) U Cannabinoids Screen Negative ng/mL ng/mL (< 50) - Orders Orders: ED Orders Category Date Time Status Place IV Lock 1T Care 03/08/18 12:[address] BRAIN W/O CONTRAST Stat Exams 03/08/[address] C-SPINE W/O CONTRAST Stat Exams 03/08/[address] MAXILLOFACIAL W/O DYE Stat Exams 03/08/18 Taken WRIST 3 VIEWS OR MORE [RAD] Stat Exams 03/08/18 Ordered ALCOHOL MEDICAL USE ONLY Routine Lab 03/08/18 12:40 Received CBC/PLATELET/DIFF Routine Lab 03/08/18 12:40 Completed CMP Routine Lab 03/08/18 12:40 Received DRUG SCREEN URINE MEDICAL ONLY Routine Lab 03/08/18 12:40 Completed UA MACRO DIP ONLY Routine Lab 03/08/18 12:35 Completed ck [CREATINE KINASE] Routine Lab 03/08/18 12:40 Received 0.9 % Sodium Chloride [Normal Saline] 1,000 ml Med 03/08/18 12:42 Active IV Q1H Diph,Pertuss(Acell),Tet Vac/Pf [Adacel] Med 03/08/18 12:05 Discontinued 0.5 ml IM .ONCE ONE Fall Physical Exam - Physical Exam General Appearance: mild distress Head: trauma (abrasions forehead, nose, left cheek, chin. Very poor dentition) Neck: non-tender, painless ROM Eye: ZARINA (2 mm), EOMI (rapid nystagmus) ENT: nml external inspection (mouth kearney sbeen bleeding, from upper central incisor area (?)), airway nml Resp/CVS: chest non-tender, breath sounds nml, heart sounds nml Abdomen: soft, normal bowel sounds Neuro: CN's nml as tested, sensation nml, motor nml, reflexes nml, other ( constant coarse tremor ) Skin: color nml Back: normal inspection, no CVA tenderness, no vertebral tenderness Extremities: atraumatic, pelvis stable, hips non-tender Joint: Nml gait/weight bearing - Yovani Coma Score Eyes Open: Spontaneous Speech: Oriented Motor: Obeys Commands Discharge Clincal Impression: ETOH abuse Fall Qualifiers: Encounter type: initial encounter Qualified Code(s): W19.XXXA - Unspecified fall, initial encounter Referrals: Omayra Esquivel MD [Primary Care Provider] - 2 Days Condition: Fair Disposition: 01 HOME, SELF-CARE Decision to Admit: NO Decision Time: 13:40
[2018-03-08 13:09] LABS: eGFR (African) > 60; eGFR (Non-African) > 60
--- NOTE | 2018-03-08 13:57 | Diagnostic Imaging Report ---
WIMLER SALEEM [facility] [address] [facility] [address] [place] [address]. [id number] Report Submission Date: Mar 08, 2018 1:04:18 PM CDT Patient Study Name: PATTY EATON Date: Mar 08, 2018 12:17:35 PM CDT Modality Type: CT\SR Gender: M Description: CT BRAIN W/O CONTRAST : 56 Institution: [facility] Physician: WILMER SALEEM Examination: CT head without contrast History: INJURY AFTER FALL (Hx) Comparison exam: None available Technique: Noncontrast head CT protocol. Findings: Ventricles and sulci are consistent for patient age. Cerebrocerebellar parenchyma demonstrates periventricular low attenuation consistent with small vessel disease. No evidence for parenchymal hemorrhage. No evidence for mass or mass effect. No midline shift. No extra axial fluid collections. Partial visualization of the paranasal sinuses, mastoid air cells, orbits, skull and scalp without gross irregularity. Anterior falx calcifications. Impression: Age related changes. No acute parenchymal process. No hemorrhage. Electronically signed on Mar 08, 2018 1:04:18 PM CDT by: Angel Luis MENSAH
--- NOTE | 2018-03-08 13:58 | Diagnostic Imaging Report ---
WILMER SALEEM [facility] [address] [facility] [address] [place] [address]. [id number] Report Submission Date: Mar 08, 2018 1:24:27 PM CDT Patient Study Name: PATTY EATON Date: Mar 08, 2018 12:23:14 PM CDT Modality Type: CT\SR Gender: M Description: CT C-SPINE W/O CONTRAS : 56 Institution: [facility] Physician: WILMER SALEEM Examination: CT cervical spine History: INJURY AFTER FALL (Hx) Comparison exams: None provided Technique: CT cervical spine axial imaging with sagittal and coronal reconstruction Findings: Sagittal reconstruction demonstrates normal height and alignment the cervical vertebral bodies. No anterior compression deformity. Scattered osteophytes. Disc space narrowing C3/4. Coronal reconstruction does not demonstrate locked or perched facets. Alantoaxial degenerative changes. Carotid vascular calcifications. Axial imaging obtained from the skull base through T1 Lamina and pedicles are intact. No ossific density within the central canal. Scattered facet degenerative changes. No prevertebral soft tissue abnormality. Impression: Multilevel degenerative changes. No evidence for vertebral body compression fracture. Electronically signed on Mar 08, 2018 1:24:27 PM CDT by: Angel Luis MENSAH
--- NOTE | 2018-03-08 13:59 | Diagnostic Imaging Report ---
WILMER SALEEM [facility] [address] [facility] [address] [place] [address]. [id number] Report Submission Date: Mar 08, 2018 1:09:44 PM CDT Patient Study Name: PATTY EATON Date: Mar 08, 2018 12:20:00 PM CDT Modality Type: CT\SR Gender: M Description: CT MAXILLOFACIAL W/O D : 56 Institution: [facility] Physician: WILMER SALEEM Examination: CT maxillofacial History: INJURY AFTER FALL (Hx) Comparison exams: None provided Technique: Axial imaging with sagittal and coronal reconstruction Findings: Medial and inferior orbital gonzalez are intact. Anterior and posterior maxillary gonzalez are also intact. Zygomatic arches without fracture. No nasal bone abnormality. Mandibles including the mandibular condyle are without irregularity. No air fluid levels within the sinuses. Mild mucous thickening. Soft tissue fullness involving the superior lip/infranasal region. Remaining visualized osseous structures and soft tissue structures are without irregularity. Impression: No orbital, nasal, mandibular or maxillary bone fractures. Infranasal soft tissue injury. Electronically signed on Mar 08, 2018 1:09:44 PM CDT by: Angel Luis MENSAH
--- NOTE | 2018-03-08 14:00 | Diagnostic Imaging Report ---
WILMER SALEEM [facility] [address] [facility] [address] Report Submission Date: Mar 08, 2018 1:31:53 PM CDT Patient Study Name: PATTY EATON Date: Mar 08, 2018 1:04:49 PM CDT Modality Type: DX Gender: M Description: UPPER EXTREMITY : 56 Institution: [facility] Physician: WILMER SALEEM Examination: Plain film left wrist History: PAIN AFTER FALL (Hx) Comparison exams: None available Findings: 3 views the left wrist demonstrates osteopenia. Articular degenerative changes. Old ulna styloid avulsion. No acute appearing fracture. No dislocation. No soft tissue abnormality. Impression: Osteopenia and degenerative changes. No acute appearing osseous abnormality Electronically signed on Mar 08, 2018 1:31:53 PM CDT by: Angel Luis MENSAH
[2018-03-08 15:13] VITALS: BP 107/65
== END 2018-03-08 15:02 | disposition home or self-care (01) ==
LOC: ED 11:57
DX: S00.81XA Abrasion of other part of head, initial encounter (principal); W19.XXXA Unspecified fall, initial encounter; Y92.9 Unspecified place or not applicable; Y93.9 Activity, unspecified; Y99.9 Unspecified external cause status; M25.532 Pain in left wrist; F10.10 Alcohol abuse, uncomplicated
CPT/HCPCS: 70450; 70486; 72125; 73110; 80053; 80320; 80377; 81002; 82550; 85025; J7030; 90471; 96365; 99285; G0480; G0481; S1016

== ENCOUNTER 2018-06-07 14:10 | Emergency (ER) | payer OTHER ==
--- NOTE | 2018-06-07 14:28 | ED Physician Documentation ---
Upper Extremity Injury - HISTORIAN Historian: patient - HPI Stated Complaint: elbow pain Chief Complaint: Upper Extremity Injury Additional Information: Chair slipped from under him at restaurant and he now has left elbow pain. Oc curred about an hour ago. No treatment attempted. Says he has had "very little" to drink today. Brought to ER per . - ROS CONST: no problems - PAST HX Past History: other (ETOH) Allergies/Adverse Reactions: Allergies Allergy/AdvReac Type Severity Reaction Status Date / Time No Known Allergies Allergy Verified 06/07/18 14:29 Home Medications: Ambulatory Orders Medication Instructions Recorded Omeprazole [Prilosec] 20 mg PO QDAY 12/04/16 Ferrous Sulfate [Feosol] 325 mg PO D 01/12/18 Spironolactone [Aldactone] 50 mg PO BID 01/12/18 Aspirin [Brady] 81 mg PO DAILY tab.chew 01/13/18 - SOCIAL HX Smoking History: cigarettes Alcohol Use: heavy - FAMILY HX Family History: no significant history - VITAL SIGNS Vital Signs: Vital Signs Temp Pulse Resp BP Pulse Ox 70 24 118/67 94 06/07/18 14:21 06/07/18 14:21 06/07/18 14:21 06/07/18 14:21 - REVIEWED ASSESSMENTS Nursing Assessment Reviewed: Yes Vitals Reviewed: Yes Progress - Progress Progress: [place]. [id number] Report Submission Date: Jun 07, 2018 3:12:34 PM CDT Patient Study Name: PATTY EATON Date: Jun 07, 2018 2:24:49 PM CDT Modality Type: DX Gender: M Description: UPPER EXTREMITY : 56 Institution: [facility] Physician: WILMER SALEEM - ER Left elbow 3 views Date of Exam: June 07, 2018. History: PT FELL OUT OF CHAIR, LT ELBOW PAIN (Hx) / ITS.REASON fell on it an hour ago, decreased ROM Findings: A comminuted fracture of the left radial head present. There is no associated dislocation. The proximal left ulna appears intact. There is a questionable nondisplaced fracture of the lateral epicondyle of the distal humerus. Impression: Comminuted fracture of the left radial head. Questionable nondisplaced fracture of the left humerus lateral epicondyle. Electronically signed on Jun 07, 2018 3:12:34 PM CDT by: El Sun ED Results Lab/Radiology - Orders Orders: ED Orders Category Date Time Status Long Arm Splint 1T Care 06/07/18 15:17 Ordered Sling to Affected Extremity 1T Care 06/07/18 15:17 Ordered ELBOW 3 VIEWS [RAD] Stat Exams 06/07/18 Completed HYDROcodone /APAP 5/325 [Victor 5/325] Med 06/07/18 15:17 Once 1 each PO NOW ONE Upper Extremity Injury Physic - Physical Exam General Appearance: moderate distress, other (garbled speech - (typical of past encounters )) Hand: normal inspection, no evidence of injury Wrist: normal inspection, non-tender, no evidence of injury Elbow/Forearm: limited ROM (L, limited by pain) Shoulder: no evidence of injury Neuro/Vascular/Tendon: no vascular compromise (L radial pulse 2+), motor nml, s ensation nml Skin: warm,dry Head/ENT: nml inspection Neck/Back: nml inspection Resp/CVS: no resp. distress Discharge Clincal Impression: ETOH abuse Elbow fracture, left Qualifiers: Encounter type: initial encounter Fracture type: closed Qualified Code(s): S42.402A - Unspecified fracture of lower end of left humerus, initial encounter for closed fracture Referrals: Omayra Esquivel MD [Primary Care Provider] - 2 Days Additional Instructions: Keep the splint clean and dry. Take off the sling to sleep. Apply an ice pack to the sore area over the splint, for 30 minutes of each hour you are awake. Don't get the splint wet. Call [facility] in the morning and make an appointment to be see in the next two days. Tell them you have: Comminuted fracture of the left radial head. Questionable nondisplaced fracture of the left humerus lateral epicondyle. Condition: Fair Disposition: 01 HOME, SELF-CARE Decision to Admit: NO Decision Time: 15:30
--- NOTE | 2018-06-07 15:15 | Diagnostic Imaging Report ---
WILMER SALEEM [facility] [address] [facility] [address] [address] Report Submission Date: Jun 07, 2018 3:12:34 PM CDT Patient Study Name: PATTY EATON Date: Jun 07, 2018 2:24:49 PM CDT Modality Type: DX Gender: M Description: UPPER EXTREMITY : 56 Institution: [facility] Physician: WILEMR SALEEM Left elbow 3 views Date of Exam: June 07, 2018. History: PT FELL OUT OF CHAIR, LT ELBOW PAIN (Hx) / ITS.REASON fell on it an hour ago, decreased ROM Findings: A comminuted fracture of the left radial head present. There is no associated dislocation. The proximal left ulna appears intact. There is a questionable nondisplaced fracture of the lateral epicondyle of the distal humerus. Impression: Comminuted fracture of the left radial head. Questionable nondisplaced fracture of the left humerus lateral epicondyle. Electronically signed on Jun 07, 2018 3:12:34 PM CDT by: El MENSAH
[2018-06-07] MEDS: HYDROcodone /APAP 5/325 1 EACH TABLET PO ONE (15:35)
[2018-06-07 15:45] VITALS: BP 122/70
== END 2018-06-07 15:42 | disposition home or self-care (01) ==
LOC: ED 14:10
DX: S42.402A Unspecified fracture of lower end of left humerus, initial encounter for closed fracture (principal); W19.XXXA Unspecified fall, initial encounter; Y92.511 Restaurant or cafe as the place of occurrence of the external cause; Y93.9 Activity, unspecified; Y99.9 Unspecified external cause status; F10.10 Alcohol abuse, uncomplicated
CPT/HCPCS: 73080; A9270; 99283

== ENCOUNTER 2019-02-15 19:11 | Emergency (ER) | payer SELFPAY ==
[2019-02-15] MEDS ORDERED: 0.9 % SODIUM CHLORIDE 1,000 ML IV ONE ×2 (19:31)
--- NOTE | 2019-02-15 19:38 | ED Physician Documentation ---
General Adult - HISTORIAN Historian: patient - HPI Stated Complaint: abd pain Chief Complaint: General Adult Timing: still present Severity: moderate Further Comments: yes (Pt is a 58 yo male with c/o abd pain, b/l flank/abd pain. He presents with marked jaundice. He has not seen a doctor about this and he has had it for some time, weeks to months. Pt has been a drinker of significant amounts of alcohol, but says he quit this 1 week ago.) - ROS CONST: weakness EYES/ENT: none CVS/RESP: shortness of breath (chroic) GI/: abdominal pain MS/SKIN/LYMPH: other (marked jaundice) - PAST HX Past History: hypertension, other (iron deficiency, GERD) Allergies/Adverse Reactions: Allergies Allergy/AdvReac Type Severity Reaction Status Date / Time No Known Allergies Allergy Verified 02/15/19 20:11 Home Medications: Ambulatory Orders Medication Instructions Recorded Omeprazole [Prilosec] 20 mg PO QDAY 12/04/16 Ferrous Sulfate [Feosol] 325 mg PO D 01/12/18 Aspirin [Brady] 81 mg PO DAILY tab.chew 01/13/18 Metoprolol Lowery/Hydrochlorothiaz 02/15/19 [Metoprolol ER-Hctz 25-12.5 mg] - SOCIAL HX Smoking History: non-smoker Alcohol Use: heavy - FAMILY HX Family History: No - VITAL SIGNS Vital Signs: Vital Signs Temp Pulse Resp BP Pulse Ox 122/70 06/07/18 15:42 - REVIEWED ASSESSMENTS Nursing Assessment Reviewed: Yes Vitals Reviewed: Yes Progress - Progress Progress: NS 1 L IVF bolus then NS + 40 mEq KCl/L @ 125 ml/hr. KCL 20 mEq po x [address] [facility] [address] Butterfield. - EKG/XRAY/CT EKG: NSR (HR=66; non-specific ST & T wave abnormalities; T wave inversions I, II, II, aVF, V1-6.) ED Results Lab/Radiology - Orders Orders: ED Orders Category Date Time Status Continuous EKG monitoring Q30M Care 02/15/19 19:29 Active Continuous Pulse Oximetry Q30M Care 02/15/19 19:[address] IV Lock 1T Care 02/15/19 19:29 Active CHEST 1VIEW [RAD] Stat Exams 02/15/19 Ordered AMYLASE Routine Lab 02/15/19 Ordered CBC/PLATELET/DIFF Routine Lab 02/15/19 19:29 Ordered CMP Routine Lab 02/15/19 Ordered CREATINE KINASE Routine Lab 02/15/19 Ordered PRO B-NATRIURETIC PEPTIDE Stat Lab 02/15/19 Ordered TROPONIN I Stat Lab 02/15/19 Ordered 0.9 % Sodium Chloride [Normal Saline] 1,000 ml Med 02/15/19 19:31 Discontinued IV .STK-MED 0.9 % Sodium Chloride [Normal Saline] 1,000 ml Med 02/15/19 19:31 Active IV Q1H EKG WITH COMPARISON Stat Ther 02/15/19 Ordered General Adult Physical Exam - PHYSICAL EXAM GENERAL APPEARANCE: mild distress EENT: pharynx normal, other (jaundiced sclera) NECK: normal inspection, supple RESPIRATORY: no resp distress, chest non-tender, wheezes CVS: reg rate & rhythm, heart sounds normal ABDOMEN: soft, normal bowel sounds, tenderness (RUQ & LUQ and b/l flanks) BACK: normal inspection, no CVA tenderness SKIN: jaundice EXTREMITIES: non-tender, normal range of motion NEURO: oriented X3, motor nml, sensation nml Discharge Clincal Impression: markedly elevated T. Bili, Hx Alcoholic cirrhosis of the liver Referrals: Omayra Esquivel MD [Primary Care Provider] - Condition: Stable Disposition: XFER SHT-TRM HOSP Decision to Admit: NO Decision Time: 21:22
[2019-02-15 20:28] LABS: eGFR (Non-African) 33
[2019-02-15 20:31] LABS: MEAN CORPUSCULAR HEMOGLOBIN 42.4 pg (28.0-34.0)
[2019-02-15 20:50] LABS: BASOPHILS % 0.4 % (0.0-1.5); EOSINOPHILS % 2.7 % (0.0-6.8); MONOCYTES % 16.4 % (0.0-11.0); NEUTROPHILS # 2.6 # k/uL (1.4-7.7)
[2019-02-15 20:51] LABS: ANISOCYTOSIS 3+ (NEGATIVE); OVALOCYTES 1+ (NEGATIVE); TEAR DROP CELLS 1+ (NEGATIVE)
[2019-02-15] MEDS ORDERED: POTASSIUM CHLORIDE 20 MEQ TABLET.ER PO ONE (20:54)
[2019-02-15] MEDS ORDERED: POTASSIUM CHLORIDE 40 MEQ/NS 1,000 ML IV ONE (20:55)
[2019-02-15] MEDS ORDERED: POTASSIUM CHLORIDE 40 MEQ/NS 1,000 ML IV SCH (21:00)
[2019-02-15 23:21] VITALS: BP 96/54
--- NOTE | 2019-02-16 06:06 | Diagnostic Imaging Report ---
ELLE GRIDER [facility] [address] [facility] [address] [address] Report Submission Date: February 15, 2019 8:19:42 PM CDT Patient Study Name: PATTY EATON Date: February 15, 2019 7:35:30 PM CDT Modality Type: DX Gender: M Description: CHEST 1VIEW : 56 Institution: [facility] Physician: ELLE GRIDER Portable chest History: Weakness and shortness of breath Findings: Obesity is observed. The lungs are clear. There is no pleural effusion. Heart size and pulmonary vascularity are normal. Electronically signed on February 15, 2019 8:19:42 PM CDT by: Abel MENSAH
== END 2019-02-15 21:40 | disposition short-term general hospital (02) ==
LOC: ED 19:11
DX: K70.30 Alcoholic cirrhosis of liver without ascites (principal)
CPT/HCPCS: 36415; 71045; 80053; 82150; 82550; 83880; 84484; 85025; 96374; 99285; A9270; J3480; J7030; S1016